=== PATIENT | male | born 2000 | race Caucasian/White ===

== ENCOUNTER 2021-11-18 10:00 | Inpatient (IN) | payer OTHER ==
[~2021-11-18] VITALS: Ht 167.6 cm; Wt 70.3 kg
[~2021-11-18 10:00] MED LIST: IBUPROFEN400 MG PO
[2021-11-18 12:37] LABS: HEMOGLOBIN 16.8 gm/dl (14.0-17.5); RED BLOOD COUNT 5.18 M/UL (4.20-5.50); WHITE BLOOD COUNT 10.2 K/UL (4.5-11.0)
[2021-11-18 13:00] LABS: BUN/CREATININE RATIO 11 (0-10)
[2021-11-18 23:04] LABS: HEMOGLOBIN 14.2 gm/dl (14.0-17.5); RED BLOOD COUNT 4.42 M/UL (4.20-5.50); WHITE BLOOD COUNT 15.7 K/UL (4.5-11.0)
[2021-11-18 23:17] LABS: BUN/CREATININE RATIO 12 (0-10)
[2021-11-19 02:07] LABS: HEMOGLOBIN 14.3 gm/dl (14.0-17.5); RED BLOOD COUNT 4.43 M/UL (4.20-5.50); WHITE BLOOD COUNT 11.9 K/UL (4.5-11.0)
[2021-11-19 02:29] LABS: BUN/CREATININE RATIO 13 (0-10)
[2021-11-19] MEDS ORDERED: ENOXAPARIN30 MG/0.3 SC (12:50)
== END 2021-11-19 13:37 | disposition home or self-care (01) | DRG 494 ==
LOC: ER1 10:00 → CDU 14:27 → M/S 14:27
PROVIDERS: Emergency Medicine; Orthopaedic Surgery; Physician Assistant; ADMIT Internal Medicine
PROC: 2W3LX1Z Immobilization of Right Lower Extremity using Splint (ICD-10-PCS; 2021-11-18)
PROC: 0QSG06Z Reposition Right Tibia with Intramedullary Internal Fixation Device, Open Approach (ICD-10-PCS; principal; 2021-11-18 20:30)
DX: S82.451A Displaced comminuted fracture of shaft of right fibula, initial encounter for closed fracture (principal); S82.241A Displaced spiral fracture of shaft of right tibia, initial encounter for closed fracture; S82.111A Displaced fracture of right tibial spine, initial encounter for closed fracture; Z20.822 Contact with and (suspected) exposure to COVID-19; F10.10 Alcohol abuse, uncomplicated; F12.10 Cannabis abuse, uncomplicated; F17.210 Nicotine dependence, cigarettes, uncomplicated; V29.9XXA Motorcycle rider (driver) (passenger) injured in unspecified traffic accident, initial encounter; Z82.49 Family history of ischemic heart disease and other diseases of the circulatory system; Z80.9 Family history of malignant neoplasm, unspecified
CPT/HCPCS: 29515; 36415; 71045; 72125; 72128; 72131; 72170; 73030; 73080; 73090; 73590; 76000; 80048; 80053; 85025; 85027; 85610; 86850; 86900; 86901; 90715; 96374; 96375; 96376; 97161; 99285; C1713; G0480; J0690; J1100; J1170; J1650; J1885; J2001; J2250; J2370; J2405; J2550; J2704; J2795; J3010; J7120